=== PATIENT | female | born 1970 | race American Indian/Alaskan Native ===

== ENCOUNTER 2016-08-10 23:15 | Emergency (ER) | payer OTHER ==
--- NOTE | 2016-08-11 00:11 | XRay Report ---
FINAL REPORT PROCEDURE: XR ANKLE 2V RT TECHNIQUE: RIGHT ankle radiographs, AP and lateral views. HISTORY: Right Ankle Pain COMPARISON: No prior studies are available for comparison. FINDINGS: Fracture (s) and/or Dislocation(s): None. Alignment: Normal. Joint space(s): Mild narrowing of the joint spaces Soft tissues: Moderate diffuse soft tissue swelling Bone mineralization: Normal. Foreign bodies: Normal. Calcaneal spurring: Moderate inferior spur IMPRESSION: There is no evidence of an acute fracture. Moderate diffuse soft tissue swelling..
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
[2016-08-11] MEDS ORDERED: FLEXERIL PO ONE ×2 (02:37→02:41)
[2016-08-11] MEDS ORDERED: MOTRIN PO ONE (02:37)
[2016-08-11 03:04] VITALS: BP 114/77
== END 2016-08-11 03:04 | disposition home or self-care (01) ==
LOC: ED 23:15
DX: M25.571 Pain in right ankle and joints of right foot (principal); V49.49XA Driver injured in collision with other motor vehicles in traffic accident, initial encounter; Y93.89 Activity, other specified; Y99.8 Other external cause status; Y92.488 Other paved roadways as the place of occurrence of the external cause
CPT/HCPCS: 99283

== ENCOUNTER 2017-05-26 08:40 | Outpatient (CLI) | payer OTHER ==
--- NOTE | 2017-05-27 15:40 | Mammography Report ---
BILATERAL DIGITAL SCREENING MAMMOGRAM with CAD: 05/26/17 08:40:00 CLINICAL: Routine screening. COMPARISON:03/02/15 FINDINGS: The breasts are heterogeneously dense, which may obscure small masses. No mass, architectural distortion or suspicious calcifications. IMPRESSION: No mammographic evidence of malignancy. BI-RADS CATEGORY: 1 - - Negative RECOMMENDATION: Routine mammographic screening in one year. COMMENT: Patient follow-up letters are generated by our [employer] application.
== END 2017-05-26 08:41 | disposition home or self-care (01) ==
LOC: SPVWC 08:40
PROVIDERS: ATTEND Obstetrics & Gynecology
DX: Z12.31 Encounter for screening mammogram for malignant neoplasm of breast (principal)
CPT/HCPCS: 77067